=== PATIENT | male | born 1960 | race Caucasian/White ===

== ENCOUNTER → 2017-01-10 | Day surgery (SDC) | payer OTHER ==
[2017-01-02 09:21] VITALS: Ht 172.7 cm; Wt 100.0 kg
[~2017-01-10] VITALS: Ht 172.7 cm; Wt 100.0 kg
[~2017-01-10] MED LIST: AMLO-110 PO; ASPCH81X PO; ATEN50TA8 PO; ATROPINE SULFATE 0.1 MG/ML 5ML SYR IV PRN; EpHEDrine SULFATE INJ 50 MG/ML AMP IV PRN; HYDR-4330 PO; LIDOCAINE HCL 2% 2 ML VIAL (20MG/ML) ONE; LOSA100T33 PO; PROPOFOL IV EMULSION 10 MG/ML 20 ML VIAL IV ONE; PRVC/40 PO; SODIUM CHLORIDE 0.9% 500ML 500 ML IV ONE
--- NOTE | 2017-01-10 13:45 | Endo History and Physical ---
History & Physical Date of Service: January 10, 2017. Chief Complaint: screening Referring Physician: Dr. Haris Zhong History of Present Illness 56 yo CM who presents for screening colonoscopy. Past Surgical History Hx Cardiac Surgery: No Hx Internal Defibrillator: No Hx Pacemaker: No Hx Abdominal Surgery: No Hx of Implantable Prosthesis: No Hx Post-Op Nausea and Vomiting: No Hx Cancer Surgery: No Hx Thoracic Surgery: No Hx Orthopedic: Yes (RT SHOULDER SURGERY) Hx Urinary Tract Surgery: No Family History None Social History Smoking Status: Current Every Day Smoker Hx Substance Use: No Hx Alcohol Use: No Allergies Coded Allergies: No Known Allergies (Verified , 01/10/17) Uncoded Allergies: NONE (Allergy, Unknown, 09/16/04) Current Medications Reported Home Medications Medications Dose Route/Sig Max Daily Dose Days Date Category Lortab 5-325 mg (Hydrocodone-Acetaminophen) 1 Tab Tab 1-2 Tab PO Q4 PRN 01/02/17 Reported Tenormin (Atenolol) 50 Mg Tab 50 Mg PO QAM 01/02/17 Reported Aspirin Chewable (Aspirin) 81 Mg Chew 81 Mg PO QAM 01/02/17 Reported Losartan Potassium/Hydroc (Losartan Potassium & Hydrochlo) 1 Tab Tab 1 Tab PO QAM 90 01/02/17 Reported Norvasc (Amlodipine Besylate) 5 Mg Tab 5 Mg PO QAM 01/02/17 Reported Pravastatin Sodium (Pravastatin Sod) 40 Mg Tab 1 Tab PO QAM 01/02/17 Reported Vital Signs Weight (Kilograms): 100 Height (Feet): 5 Height (Inches): 8 Date Time Temp Pulse Resp B/P Pulse Ox O2 Delivery O2 Flow Rate FiO2 01/10/17 13:32 36.6 64 20 146/82 97 Room Air Physical Exam General Appearance: WD/WN, no apparent distress Respiratory/Chest: Auscultation: breath sounds normal Cardiovascular: Heart Auscultation: RRR Abdomen: Bowel Sounds: normal Inspection & Palpation: soft, non-distended, no tenderness, guarding & rebound Assessment and Plan Assessment: 56 yo CM who presents for screening colonoscopy. Plan: Proceed with colonoscopy.
--- NOTE | 2017-01-10 14:51 | Discharge Instructions ---
Endoscopy Patient Instructions Date / Procedure(s) Performed January 10, 2017. Colonoscopy Allergy Information Coded Allergies: No Known Allergies (Verified , 01/10/17) Discharge Date / Findings January 10, 2017. Ulcer of Ileocecal valve s/p biopsies Sigmoid colon polyp Diverticulosis Medication Instructions Stopped Medication(s): took baby ASA today OK to resume all medications today as prescribed Reported Home Medications Medications Dose Route/Sig Max Daily Dose Days Date Category Lortab 5-325 mg (Hydrocodone-Acetaminophen) 1 Tab Tab 1-2 Tab PO Q4 PRN 01/02/17 Reported Tenormin (Atenolol) 50 Mg Tab 50 Mg PO QAM 01/02/17 Reported Aspirin Chewable (Aspirin) 81 Mg Chew 81 Mg PO QAM 01/02/17 Reported Losartan Potassium/Hydroc (Losartan Potassium & Hydrochlo) 1 Tab Tab 1 Tab PO QAM 90 01/02/17 Reported Norvasc (Amlodipine Besylate) 5 Mg Tab 5 Mg PO QAM 01/02/17 Reported Pravastatin Sodium (Pravastatin Sod) 40 Mg Tab 1 Tab PO QAM 01/02/17 Reported Provider Instructions Activity Restrictions - No exercising or heavy lifting for 24 hours. - Do not drink alcohol the day of the procedure. - Do not drive a car or operate machinery until the day after the procedure. - Do not make any important decisions or sign important papers in 24 hours after the procedure. Following Day: - Return to full activity which may include returning to work/school. Diet Start your diet with liquids and light foods (jello, soup, juice, toast). Then eat your usual diet if not nauseated. Treatment For Common After Affects For mild abdominal pain, bloating, or excessive gas: - Rest - Eat lightly - Lie on right side Follow-Up Information Follow-up with Dr. Haris Zhong as scheduled Anesthesia Information What You Should Know You have had a procedure that required some medicine to reduce anxiety and discomfort. This treatment is called moderate sedation. After receiving the treatment, you may be sleepy, but you will be able to breathe on your own. The effects of the treatment may last for several hours. Follow these instructions along with Activity/Diet recommendations noted above: * Do NOT do anything where dizziness or clumsiness would be dangerous. * Rest quietly at home today, then you can be up and about tomorrow. * Have a responsible person stay with you the rest of today. * You may have had an I.V. today. If so, you may take the dressing off later today. Recommendations Call your doctor if: * Trouble breathing * Continuous vomiting for more than 24 hours * Temperature above 101 degrees * Severe abdominal pain or bloating * Pain not relieved by pain medicine ordered * There is increased drainage or redness from any incision * A large amount of rectal bleeding greater than 2-3 tablespoons. (If you had a polyp/s removed or have hemorrhoids, a small amount of blood - from the rectum is to be expected.) * You have any unanswered questions or concerns. IN THE EVENT OF A SERIOUS EMERGENCY, GO TO THE NEAREST EMERGENCY ROOM Your discharge instructions were prepared by provider Bg Brown. Patient Instructions Signature Page Guanako Pradhan Patient (or Guardian) Signature/Date: I have read and understand the instructions given to me by my caregivers. Caregiver/RN/Doctor Signature/Date: The above-named patient and/or guardian has received patient instructions on this date. + Original Patient Signature Page (only) stays with chart. Please make copy for patient.
--- NOTE | 2017-01-10 14:53 | Anesthesiology Progress Note ---
Anesthesia Post Op Note Date & Time January 10, 2017 at 14:53 Vital Signs Pain Intensity: 5 Vital Signs Past 12 Hours Date Time Temp Pulse Resp B/P Pulse Ox O2 Delivery O2 Flow Rate FiO2 01/10/17 13:32 36.6 64 20 146/82 97 Room Air Notes Mental Status: alert / awake / arousable, participated in evaluation Pt Amnestic to Procedure: Yes Nausea / Vomiting: adequately controlled Pain: adequately controlled Airway Patency, RR, SpO2: stable & adequate BP & HR: stable & adequate Hydration State: stable & adequate Anesthetic Complications: no major complications apparent
--- NOTE | 2017-01-10 15:01 | GI REPORT ---
Procedure Date: 01/10/2017 2:14 PM Procedure: Colonoscopy Indications: Screening for colorectal malignant neoplasm Medicines: Monitored Anesthesia Care Complications: No immediate complications. Estimated Blood Loss: Estimated blood loss: none. Procedure: Pre-Anesthesia Assessment: - Prior to the procedure, a History and Physical was performed, and patient medications and allergies were reviewed. The patient's tolerance of previous anesthesia was also reviewed. The risks and benefits of the procedure and the sedation options and risks were discussed with the patient. All questions were answered, and informed consent was obtained. Prior Anticoagulants: The patient has taken aspirin, last dose was 1 day prior to procedure. ASA Grade Assessment: II - A patient with mild systemic disease. After reviewing the risks and benefits, the patient was deemed in satisfactory condition to undergo the procedure. After I obtained informed consent, the scope was passed under direct vision. Throughout the procedure, the patient's blood pressure, pulse, and oxygen saturations were monitored continuously. The scope was introduced through the anus and advanced to the terminal ileum. The colonoscopy was performed without difficulty. The patient tolerated the procedure well. The quality of the bowel preparation was good. The terminal ileum, ileocecal valve, appendiceal orifice, and rectum were photographed. Findings: A single (solitary) six mm ulcer was found at the ileocecal valve. No bleeding was present. Biopsies were taken with a cold forceps for histology. A 5 mm polyp was found in the sigmoid colon. The polyp was sessile. The polyp was removed with a hot snare. Resection and retrieval were complete. Multiple small-mouthed diverticula were found in the sigmoid colon. Impression: - A single (solitary) ulcer at the ileocecal valve. Biopsied. - One 5 mm polyp in the sigmoid colon, removed with a hot snare. Resected and retrieved. - Diverticulosis in the sigmoid colon. Recommendation: - Resume previous diet. - Continue present medications. - Repeat colonoscopy for surveillance based on pathology results. - Return to primary care physician as previously scheduled. Bg Brown DO 01/10/2017 3:00:44 PM This report has been signed electronically. Note Initiated On: 01/10/2017 2:14 PM I attest to the content of the Intraoperative Record and orders documented therein, exceptions below
[2017-01-10 15:19] VITALS: BP 142/96; PULSE 59; O2SAT 97
== END | disposition home or self-care (01) ==
LOC: C.GI 13:06
PROVIDERS: ATTEND Internal Medicine
DX: Z12.11 Encounter for screening for malignant neoplasm of colon (principal); K63.3 Ulcer of intestine; D12.5 Benign neoplasm of sigmoid colon; K57.30 Diverticulosis of large intestine without perforation or abscess without bleeding; F17.210 Nicotine dependence, cigarettes, uncomplicated; Z79.82 Long term (current) use of aspirin; Z79.899 Other long term (current) drug therapy; K62.89 Other specified diseases of anus and rectum

== ENCOUNTER → 2017-05-20 | Outpatient (CLI) | payer OTHER ==
[~2017-05-20] MED LIST changes: -ATROPINE SULFATE 0.1 MG/ML 5ML SYR IV PRN; -EpHEDrine SULFATE INJ 50 MG/ML AMP IV PRN; -LIDOCAINE HCL 2% 2 ML VIAL (20MG/ML) ONE; +LOSA100T26 PO; -LOSA100T33 PO; -PROPOFOL IV EMULSION 10 MG/ML 20 ML VIAL IV ONE; -SODIUM CHLORIDE 0.9% 500ML 500 ML IV ONE
[2017-05-20 12:25] LABS: BASO % 0.3 %; BASO ABS # 0.06 K/uL (0-0.2); COMPLETE YES; EOS % 0.8 %; HEMATOCRIT 51.1 % (42-52); IG% 0.5 %; LYMPH % 14.9 %; LYMPH ABS # 2.65 K/uL (1.2-3.4); MEAN CELL VOLUME 93.9 fL (80-100); MEAN CORPUSCULAR HEMOGLOBIN 31.8 pg (25-34); MEAN CORPUSCULAR HGB CONC 33.9 g/dl (32-36); MEAN PLATELET VOLUME 12.5 fL (7.4-10.4); MONO % 13.1 %; NEUT % 70.4 %; PLATELET COUNT 257 K/uL (130-400); RED BLOOD COUNT 5.44 M/uL (4.7-6.1); WHITE BLOOD COUNT 17.75 K/uL (4.8-10.8)
[2017-05-20 12:44] LABS: ALT/SGPT 36 U/L (12-78); AST/SGOT 21 U/L (15-37); BLOOD UREA NITROGEN 24 mg/dl (7-18); BUN/CREATININE RATIO 10.1 (10-20); CALCIUM 9.5 mg/dl (8.5-10.1); CARBON DIOXIDE 27 mmol/L (21-32); CHLORIDE 109 mmol/L (98-107); GLUCOSE 102 mg/dl (70-99); POTASSIUM 4.9 mmol/L (3.5-5.1); SODIUM 144 mmol/L (136-145)
[2017-05-20 12:49] LABS: ALB/GLOB RATIO 1.1 (0.9-2); ALKALINE PHOSPHATASE 74 U/L (45-117); CHOLESTEROL 159 mg/dl (0-200); CHOLESTEROL/HDL RATIO 4.8; HDL CHOLESTEROL 33 mg/dl; LDL CHOLESTEROL CALCULATED 89 mg/dl; TRIGLYCERIDES 185 mg/dl (0-150); VERY LOW DENSITY LIPOPROT CALC 37 mg/dl
== END | disposition home or self-care (01) ==
LOC: C.LABBFT 07:28
PROVIDERS: ATTEND Internal Medicine
DX: I10 Essential (primary) hypertension (principal); E78.5 Hyperlipidemia, unspecified; R97.20 Elevated prostate specific antigen [PSA]; D72.829 Elevated white blood cell count, unspecified; N41.9 Inflammatory disease of prostate, unspecified

== ENCOUNTER → 2017-05-24 | Outpatient (CLI) | payer OTHER ==
[2017-05-24 13:10] LABS: BLOOD UREA NITROGEN 22 mg/dl (7-18); BUN/CREATININE RATIO 12.9 (10-20); CALCIUM 9.5 mg/dl (8.5-10.1); CARBON DIOXIDE 28 mmol/L (21-32); CHLORIDE 109 mmol/L (98-107); GLUCOSE 89 mg/dl (70-99); POTASSIUM 4.7 mmol/L (3.5-5.1); SODIUM 143 mmol/L (136-145)
== END | disposition home or self-care (01) ==
LOC: C.LABBFT 07:48
PROVIDERS: ATTEND Internal Medicine
DX: I10 Essential (primary) hypertension (principal)

== ENCOUNTER → 2017-06-04 | Outpatient (CLI) | payer OTHER ==
--- NOTE | 2017-06-04 08:37 | DIAGNOSTIC IMAGING REPORT ---
EXAMINATION: RENAL ULTRASOUND CLINICAL HISTORY: N18.9 CKD (chronic kidney disease)[id number] COMPARISON STUDY: None FINDINGS: The right kidney measures 12.2 cm. The left kidney measures 11.3 cm. There is no evidence of hydronephrosis. There is 11 mm exophytic hypoechoic lesion arising from the midpole of the left kidney. This contains internal echoes, and is therefore indeterminate. No bladder abnormalities are visualized. Bilateral ureteral jets were visualized. IMPRESSION : 11 mm exophytic hypoechoic lesion arising from the midpole the left kidney. While likely representing a mildly complex cyst, a solid lesion cannot be excluded on the basis of this examination. Electronically signed by: Tal Zamudio M.D. 06/04/2017 8:36 AM Dictated Date/Time: 06/04/2017 8:22 AM
[2017-06-04 09:41] LABS: URINE APPEARANCE CLEAR (CLEAR); URINE BILIRUBIN NEG (NEG); URINE COLOR YELLOW; URINE EPITHELIAL CELL AUTO 0-5 /lpf (0-5); URINE NITRITE NEG (NEG); URINE SPECIFIC GRAVITY 1.011 (1.000-1.030); UROBILINOGEN NEG (NEG)
[2017-06-04 09:44] LABS: MANUAL MICROSCOPIC REQUIRED? NO; REVIEW REQ? NO
[2017-06-04 10:01] LABS: BLOOD UREA NITROGEN 19 mg/dl (7-18); BUN/CREATININE RATIO 16.4 (10-20); CARBON DIOXIDE 27 mmol/L (21-32); CHLORIDE 107 mmol/L (98-107); CREATININE 1.18 mg/dl (0.60-1.40); GLUCOSE 102 mg/dl (70-99); POTASSIUM 3.6 mmol/L (3.5-5.1); SODIUM 142 mmol/L (136-145)
[2017-06-04 10:02] LABS: PHOSPHORUS 2.4 mg/dl (2.5-4.9)
[2017-06-04 10:12] LABS: CREATININE, URINE 31.5 mg/dl; URINE TOTAL PROTEIN < 5.0 mg/dl (0-11.9)
== END ==
LOC: C.ULTR 06:43
PROVIDERS: ATTEND Internal Medicine
DX: N18.9 Chronic kidney disease, unspecified (principal)

== ENCOUNTER → 2017-06-05 | Outpatient (CLI) | payer OTHER ==
[2017-06-05 09:45] LABS: PATIENT HEIGHT 175.3 cm
[2017-06-05 12:49] LABS: CREATININE, URINE 69.8 mg/dl; URINE TOTAL PROTEIN 5.2 mg/dl (0-11.9)
[2017-06-05 13:15] LABS: CREATININE 1.18 mg/dl (0.6-1.4); URINE TOTAL PROTEIN CALC 98.8 mg/24 hr (0-149.1)
== END | disposition home or self-care (01) ==
LOC: C.LAB 09:36
PROVIDERS: ATTEND Internal Medicine
DX: N18.9 Chronic kidney disease, unspecified (principal)

== ENCOUNTER → 2017-08-07 | Outpatient (CLI) | payer OTHER ==
[~2017-08-07] MED LIST changes: -LOSA100T26 PO; +LOSA100T33 PO
[2017-08-07 12:49] LABS: BLOOD UREA NITROGEN 18 mg/dl (7-18); BUN/CREATININE RATIO 13.6 (10-20); CALCIUM 9.1 mg/dl (8.5-10.1); CARBON DIOXIDE 30 mmol/L (21-32); CHLORIDE 105 mmol/L (98-107); CREATININE 1.29 mg/dl (0.60-1.40); GLUCOSE 88 mg/dl (70-99); SODIUM 139 mmol/L (136-145)
[2017-08-07 12:50] LABS: PHOSPHORUS 3.2 mg/dl (2.5-4.9)
== END | disposition home or self-care (01) ==
LOC: C.LABBFT 07:02
PROVIDERS: ATTEND Internal Medicine Nephrology
DX: N28.9 Disorder of kidney and ureter, unspecified (principal)

== ENCOUNTER → 2017-12-02 | Outpatient (CLI) | payer OTHER ==
--- NOTE | 2017-12-02 10:25 | DIAGNOSTIC IMAGING REPORT ---
(RENAL)RETROPERITON COMP HISTORY: Renal cyst N28.1 Renal cyst COMPARISON: 06/04/2017 FINDINGS: Right kidney: Maximum dimension 12.2 cm. No evidence for hydronephrosis. Normal corticomedullary differentiation and cortical thickness. Left kidney: Maximum dimension 11.0 cm. 9 mm exophytic cyst interpolar region left kidney. There are no significant internal echoes currently. No significant hydronephrosis. Normal corticomedullary differentiation and cortical thickness. Bladder: No bladder wall thickening. The bilateral ureteral jets were identified. IMPRESSION: 1. 9 mm simple left renal exophytic cyst. 2. This is improved from the prior study 3. Renal ultrasound is otherwise normal. The above report was generated using voice recognition software. It may contain grammatical, syntax or spelling errors. Electronically signed by: Berny Redd M.D. 12/02/2017 10:23 AM Dictated Date/Time: 12/02/2017 10:21 AM
== END | disposition home or self-care (01) ==
LOC: C.ULTR 09:53
PROVIDERS: ATTEND Internal Medicine Nephrology
DX: N28.1 Cyst of kidney, acquired (principal)

== ENCOUNTER → 2017-12-13 | Outpatient (CLI) | payer OTHER ==
[2017-12-13 12:07] LABS: BASO % 0.5 %; BASO ABS # 0.06 K/uL (0-0.2); EOS % 1.1 %; EOS ABS # 0.13 K/uL (0-0.5); HEMATOCRIT 48.7 % (42-52); HEMOGLOBIN 16.9 g/dL (14.0-18.0); IG# 0.04 K/uL (0.00-0.02); LYMPH % 22.8 %; LYMPH ABS # 2.76 K/uL (1.2-3.4); MEAN CELL VOLUME 92.1 fL (80-100); MEAN CORPUSCULAR HEMOGLOBIN 31.9 pg (25-34); MEAN CORPUSCULAR HGB CONC 34.7 g/dl (32-36); MONO % 8.9 %; MONO ABS # 1.08 K/uL (0.11-0.59); NEUT % 66.4 %; NEUT ABS # 8.01 K/uL (1.4-6.5); PLATELET COUNT 218 K/uL (130-400); RED CELL DISTRIBUTION WIDTH CV 13.7 % (11.5-14.5); RED CELL DISTRIBUTION WIDTH SD 46.3 fL (36.4-46.3); WHITE BLOOD COUNT 12.08 K/uL (4.8-10.8)
[2017-12-13 12:30] LABS: BLOOD UREA NITROGEN 20 mg/dl (7-18); CALCIUM 8.8 mg/dl (8.5-10.1); CARBON DIOXIDE 27 mmol/L (21-32); CHOLESTEROL 154 mg/dl (0-200); CREATININE 1.33 mg/dl (0.60-1.40); GLUCOSE 85 mg/dl (70-99); POTASSIUM 3.7 mmol/L (3.5-5.1); SODIUM 140 mmol/L (136-145)
[2017-12-13 12:41] LABS: LDL CHOLESTEROL CALCULATED 88 mg/dl
== END | disposition home or self-care (01) ==
LOC: C.LABBFT 07:01
PROVIDERS: ATTEND Internal Medicine
DX: N28.9 Disorder of kidney and ureter, unspecified (principal); I10 Essential (primary) hypertension; E78.5 Hyperlipidemia, unspecified